=== PATIENT | male | born 1995 | race Caucasian/White ===

== ENCOUNTER 2022-07-31 23:21 | Emergency (ER) | payer BC ==
[~2022-07-31 23:21] MED LIST: MOTRIN800 MG PO
[2022-08-01] MEDS ORDERED: CLINDAMYCIN HC300 MG PO (01:25)
== END 2022-07-31 23:55 | disposition home or self-care (01) ==
LOC: ED 23:21
DX: K08.89 Other specified disorders of teeth and supporting structures (principal); F90.9 Attention-deficit hyperactivity disorder, unspecified type; K12.2 Cellulitis and abscess of mouth